=== PATIENT | male | born 1985 | race Caucasian/White ===

== ENCOUNTER 2018-08-09 17:52 | Inpatient (IN) | payer OTHER ==
[~2018-08-09] VITALS: Ht 175.3 cm; Wt 79.4 kg
[2018-08-09 20:40] LABS: UA SPECIFIC GRAVITY <=1.005 (1.005-1.035); microscopic required? YES; urine erythrocyte NEGATIVE (NEGATIVE)
[2018-08-09 21:33] LABS: BASOPHIL % 0.9 % (0-2)
[2018-08-09 21:36] LABS: PLATELET COUNT 445 x10^3mcL (130-400); RED CELL DISTRIBUTION WIDTH 14.6 % (11.5-14.5)
[2018-08-09 21:46] LABS: CALCIUM 7.5 mg/dL (8.5-10.1); CARBON DIOXIDE 25.9 mmol/L (21-32); CHLORIDE SERUM 108 mmol/L (98-107); CREATININE SERUM 0.8 mg/dL (0.7-1.3); GFR1 > 60 mL/min; GLUCOSE SERUM 132 mg/dL (74-106); POTASSIUM SERUM 3.3 mmol/L (3.5-5.1); SODIUM SERUM 141 mmol/L (136-145)
[2018-08-09 21:48] LABS: ALKALINE PHOSPHATASE 65 U/L (46-116); ALT/SGPT 12 U/L (16-63); AST/SGOT 9 U/L (15-37); BILIRUBIN TOTAL 0.1 mg/dL (0.20-1.00); TOTAL PROTEIN, SERUM 6.6 g/dL (6.4-8.2)
[2018-08-09 21:51] LABS: ALBUMIN 2.6 g/dL (3.4-5.0)
[2018-08-10 01:12] VITALS: BP 149/84
[2018-08-10 01:16] VITALS: Ht 175.3 cm; Wt 79.4 kg
[2018-08-10 01:48] LABS: PHOSPHOROUS 2.7 mg/dL (2.5-4.9)
[2018-08-10 01:57] LABS: CHOLESTEROL/HDL RATIO 3.1
[2018-08-10 05:37] VITALS: BP 157/88
[2018-08-10 09:14] VITALS: BP 165/99
[2018-08-10 16:33] VITALS: BP 144/93
[2018-08-10 21:00] VITALS: BP 130/83
[2018-08-10 22:22] LABS: CALCIUM 8.7 mg/dL (8.5-10.1); CARBON DIOXIDE 23.4 mmol/L (21-32); CHLORIDE SERUM 104 mmol/L (98-107); CREATININE SERUM 0.8 mg/dL (0.7-1.3); GFR1 > 60 mL/min; GLUCOSE SERUM 111 mg/dL (74-106); MAGNESIUM 2.2 mg/dL (1.8-2.4); PHOSPHOROUS 3.2 mg/dL (2.5-4.9); POTASSIUM SERUM 4.1 mmol/L (3.5-5.1); SODIUM SERUM 138 mmol/L (136-145)
[2018-08-11 09:02] VITALS: BP 132/94
[2018-08-11 10:22] LABS: BASOPHIL % 0.6 % (0-2)
[2018-08-11 10:24] LABS: PLATELET COUNT 481 x10^3mcL (130-400); RED CELL DISTRIBUTION WIDTH 14.6 % (11.5-14.5)
[2018-08-11 10:27] LABS: CALCIUM 8.5 mg/dL (8.5-10.1); CARBON DIOXIDE 25.1 mmol/L (21-32); CHLORIDE SERUM 103 mmol/L (98-107); CREATININE SERUM 0.7 mg/dL (0.7-1.3); GFR1 > 60 mL/min; GLUCOSE SERUM 125 mg/dL (74-106); POTASSIUM SERUM 3.7 mmol/L (3.5-5.1); SODIUM SERUM 139 mmol/L (136-145)
[2018-08-11 20:55] VITALS: BP 110/73
[2018-08-12 05:20] VITALS: BP 140/93
[2018-08-12 07:09] LABS: RED CELL DISTRIBUTION WIDTH 14.4 % (11.5-14.5)
[2018-08-12 07:35] LABS: PLATELET COUNT 498 x10^3mcL (130-400)
[2018-08-12 07:46] LABS: CALCIUM 8.2 mg/dL (8.5-10.1); CARBON DIOXIDE 26.8 mmol/L (21-32); CHLORIDE SERUM 108 mmol/L (98-107); CREATININE SERUM 0.8 mg/dL (0.7-1.3); GFR1 > 60 mL/min; GLUCOSE SERUM 98 mg/dL (74-106); POTASSIUM SERUM 3.8 mmol/L (3.5-5.1); SODIUM SERUM 143 mmol/L (136-145)
[2018-08-12 09:30] VITALS: BP 162/107
[2018-08-12 13:38] VITALS: BP 147/93
[2018-08-12 17:01] VITALS: BP 137/80
[2018-08-13 05:36] VITALS: BP 140/96
[2018-08-13 06:38] LABS: BASOPHIL % 0.8 % (0-2); RED CELL DISTRIBUTION WIDTH 14.4 % (11.5-14.5)
[2018-08-13 06:42] LABS: CALCIUM 8.7 mg/dL (8.5-10.1); CARBON DIOXIDE 25.7 mmol/L (21-32); CHLORIDE SERUM 108 mmol/L (98-107); CREATININE SERUM 0.9 mg/dL (0.7-1.3); GFR1 > 60 mL/min; GLUCOSE SERUM 116 mg/dL (74-106); POTASSIUM SERUM 3.9 mmol/L (3.5-5.1); SODIUM SERUM 143 mmol/L (136-145)
[2018-08-13 06:44] LABS: PLATELET COUNT 473 x10^3mcL (130-400)
[2018-08-13 10:32] VITALS: BP 145/93
[2018-08-13 18:12] VITALS: BP 119/86
[2018-08-13 20:49] VITALS: BP 98/59
[2018-08-14 05:32] VITALS: BP 124/72
[2018-08-14 06:39] LABS: BASOPHIL % 1.5 % (0-2); RED CELL DISTRIBUTION WIDTH 14.2 % (11.5-14.5)
[2018-08-14 06:40] LABS: PLATELET COUNT 470 x10^3mcL (130-400)
[2018-08-14 06:55] LABS: CALCIUM 8.1 mg/dL (8.5-10.1); CARBON DIOXIDE 29.5 mmol/L (21-32); CHLORIDE SERUM 108 mmol/L (98-107); CREATININE SERUM 0.9 mg/dL (0.7-1.3); GFR1 > 60 mL/min; GLUCOSE SERUM 92 mg/dL (74-106); POTASSIUM SERUM 3.8 mmol/L (3.5-5.1); SODIUM SERUM 144 mmol/L (136-145)
[2018-08-14 10:23] VITALS: BP 156/91
[2018-08-14 17:31] VITALS: BP 128/75
[2018-08-14 20:43] VITALS: BP 127/78
[2018-08-15 05:43] VITALS: BP 149/104
[2018-08-15 07:03] LABS: CALCIUM 8.9 mg/dL (8.5-10.1); CARBON DIOXIDE 26.9 mmol/L (21-32); CHLORIDE SERUM 104 mmol/L (98-107); CREATININE SERUM 0.8 mg/dL (0.7-1.3); GFR1 > 60 mL/min; GLUCOSE SERUM 104 mg/dL (74-106); POTASSIUM SERUM 4.2 mmol/L (3.5-5.1); SODIUM SERUM 139 mmol/L (136-145)
[2018-08-15 07:18] LABS: BASOPHIL % 1.5 % (0-2)
[2018-08-15 07:19] LABS: PLATELET COUNT 549 x10^3mcL (130-400); RED CELL DISTRIBUTION WIDTH 14.6 % (11.5-14.5)
[2018-08-15 07:31] VITALS: BP 149/98
[2018-08-15] MEDS ORDERED: CLEOCIN HCL300 MG PO (11:02)
[2018-08-15] MEDS ORDERED: LAC PO (11:03)
[2018-08-15] MEDS ORDERED: NORCO1 TA2 PO (11:03)
[2018-08-15 11:43] VITALS: BP 114/49
== END 2018-08-15 12:34 | disposition home or self-care (01) | DRG 710 ==
LOC: ED 17:52 → MU 08-10 00:03
PROVIDERS: Emergency Medicine; Family Medicine; ADMIT Internal Medicine
PROC: 0X9D0ZZ Drainage of Right Lower Arm, Open Approach (ICD-10-PCS; principal; 2018-08-11)
PROC: 0XQ Anatomical Regions, Upper Extremities, Repair (ICD-10-PCS; 2018-08-15)
DX: A41.9 Sepsis, unspecified organism (principal); N17.0 Acute kidney failure with tubular necrosis; E43 Unspecified severe protein-calorie malnutrition; E87.6 Hypokalemia; L03.113 Cellulitis of right upper limb; E83.51 Hypocalcemia; R73.03 Prediabetes; I10 Essential (primary) hypertension; D64.9 Anemia, unspecified; Z68.25 Body mass index [BMI] 25.0-25.9, adult; Z82.49 Family history of ischemic heart disease and other diseases of the circulatory system
CPT/HCPCS: 83880; J0360; J0690; J1170; J1885; J2001; J2060; J2175; J2250; J2270; J2405; J2543; J2704; J3010; J3370; J3490; J7030; J7120; Q0092